=== PATIENT | male | born 1955 | race Caucasian/White ===

== ENCOUNTER 2016-11-21 07:59 | Inpatient (IN) | payer BC, OTHER ==
[~2016-11-21 07:59] MED LIST: Acetaminophen 500 MG Tab PO SCH; Famotidine 20 MG/2 ML SDV IVPUSH SCH; Ketorolac 30 MG/ML SDV IVPUSH SCH; Ropivacaine 49.25 ML, Ketorolac 30 MG, EPINEPHrine 0.5 MG, cloNIDine 80 MCG in Sodium C... INJECT ONE; Scopolamine 1.5 MG Transdermal Patch TRDERM SCH; ceFAZolin 2 GM in Premix Bag 1 BAG IV SCH; oxyCODONE ER 20 MG TAB.ER PO SCH
[2016-11-21] MEDS: Lactated Ringers 1,000 ML IV SCH ×3 (08:17→23:47)
[2016-11-21] MEDS ORDERED: Acetaminophen 500 MG Tab ONE (08:46)
[2016-11-21] MEDS ORDERED: Sodium Chloride 0.9% 20 ML ONE (08:58)
[2016-11-21] MEDS ORDERED: Lidocaine 2% 5 ML SDV ONE (08:58)
[2016-11-21] MEDS ORDERED: Propofol 200 MG/20 ML SDV ONE ×2 (08:58→10:42)
[2016-11-21] MEDS ORDERED: ceFAZolin 1 GM Vial ONE (08:58)
[2016-11-21] MEDS ORDERED: Midazolam 1 MG/ML 2 ML SDV ONE (08:59)
[2016-11-21] MEDS ORDERED: Ondansetron 4 MG/2 ML SDV ONE (08:59)
[2016-11-21] MEDS ORDERED: fentaNYL 100 MCG/2 ML SDV ONE (08:59)
[2016-11-21] MEDS ORDERED: ePHEDrine 50 MG/ML SDV ONE (08:59)
--- NOTE | 2016-11-21 09:10 | PCM.PREANE ---
Preanesthetic Assessment - Anesthesia/Transfusion/Family Hx Anesthesia History: Prior Anesthesia Without Reaction Family History of Anesthesia Reaction: No Transfusion History: No Prior Transfusion(s) - Review of Systems General: No Symptoms Pulmonary: No Symptoms Cardiovascular: No Symptoms Gastrointestinal: No Symptoms Neurological: No Symptoms Other: Reports: None - Physical Assessment NPO Status Date: 11/20/16 NPO Status Time: 23:00 O2 Sat by Pulse Oximetry: 95 Respiratory Rate: 16 Temperature: 36.6 C Vital Signs: Last Vital Signs Temp 36.6 C 11/21/16 08:45 Pulse 66 11/21/16 08:10 Resp 16 11/21/16 08:10 BP 127/75 11/21/16 08:10 Pulse Ox 95 11/21/16 08:10 Height: 1.85 m Weight: 115.666 kg ASA Class: 2 Mental Status: Alert & Oriented x3 Airway Class: Mallampati = 2 Dentition: Reports: Normal Dentition (devitalized central maxillary incisor) ROM/Head Extension: Full Lungs: Clear to Auscultation, Normal Respiratory Effort Cardiovascular: Regular Rate, Regular Rhythm - Allergies Allergies/Adverse Reactions: Allergies Allergy/AdvReac Type Severity Reaction Status Date / Time No Known Allergies Allergy Verified 03/06/14 14:10 - Acknowledgements Anesthesia Type Planned: Spinal Pt an Appropriate Candidate for the Planned Anesthesia: Yes Alternatives and Risks of Anesthesia Discussed w Pt/Guardian: Yes Pt/Guardian Understands and Agrees with Anesthesia Plan: Yes PreAnesthesia Questionnaire HEENT History: Reports: Other (See Below) Other HEENT History: wears glasses Respiratory History: Musculoskeletal History: Reports: Arthritis Psychiatric History: Reports: Anxiety, Depression Endocrine/Metabolic History: Reports: Obesity/BMI 30+ - Past Surgical History Head Surgeries/Procedures: Reports: None Musculoskeletal Surgical History: Reports: Arthroscopic Knee, Carpal Tunnel, Knee Replacement Other Musculoskeletal Surgeries/Procedures:: hx left TKA - SUBSTANCE USE Smoking Status *Q: Former Smoker Tobacco Use Within Last Twelve Months: No Recreational Drug Use History: No - HOME MEDS Home Medications: Home Meds Mometasone/Formoterol [Dulera 100-5 MCG] 1 - 2 puff INH BID PRN 02/24/16 [ History] buPROPion HCl [Wellbutrin Xl] 300 mg PO DAILY 02/24/16 [History] lamoTRIgine 200 mg PO BID 02/24/16 [History] Multivitamin with Minerals [Multiple Vitamin] 1 tab PO DAILY 11/16/16 [History] Temple-3/DHA/Epa/Fish Oil [Temple-3 Fish Oil 1,000 MG Sfgl] 1 tab PO DAILY [History] - CURRENT (IN HOUSE) MEDS Current Meds: Current Medications Acetaminophen (Tylenol Extra Strength) 1,000 mg PO ONARRIVE [facility] Last Admin: 11/21/16 08:45 Dose: 1,000 mg Famotidine (Pepcid) 40 mg IVPUSH ONARRIVE [place] Last Admin: 11/21/16 08:44 Dose: 40 mg Cefazolin Sodium/Dextrose 2 gm (/ Premix) 50 mls @ 100 mls/hr IV ONCALL [place] Lactated Ringer's (Ringers, Lactated) 1,000 mls @ 100 mls/hr IV ASDIRECTED [place] Last Admin: 11/21/16 08:17 Dose: 100 mls/hr Ketorolac Tromethamine (Toradol) 30 mg IVPUSH ONARRIVE [facility] Last Admin: 11/21/16 08:44 Dose: 30 mg Oxycodone HCl (Oxycontin) 20 mg PO ONARRIVE [place] Last Admin: 11/21/16 08:48 Dose: 20 mg Scopolamine (Transderm-Scop) 1.5 mg TRDERM ONARRIVE [place] Last Admin: 11/21/16 08:44 Dose: 1.5 mg Tranexamic Acid (Cyklokapron) 4,000 mg IV SEECOMMENT [place] Discontinued Medications Acetaminophen (Tylenol Extra Strength) Confirm Administered Dose 500 mg .ROUTE .STK-MED ONE Stop: 11/21/16 08:47 Cefazolin Sodium (Ancef) Confirm Administered Dose 2 gm .ROUTE .STK-MED ONE Stop: 11/21/16 08:59 Ephedrine Sulfate (Ephedrine Sulfate) Confirm Administered Dose 50 mg .ROUTE .STK-MED ONE Stop: 11/21/16 09:00 Fentanyl (Sublimaze) Confirm Administered Dose 100 mcg .ROUTE .STK-MED ONE Stop: 11/21/16 09:00 Ropivacaine 49.25 ml/Ketorolac Tromethamine 30 mg/Epinephrine HCl 0.5 mg/ Clonidine HCl 80 mcg/ Sodium Chloride 100 mls @ 50 mls/min INJECT ONETIME ONE Stop: 11/21/16 06:01 Sodium Chloride (Normal Saline) Confirm Administered Dose 20 mls @ as directed .ROUTE .STK-MED ONE Stop: 11/21/16 08:59 Lidocaine (Xylocaine-Mpf 2%) Confirm Administered Dose 10 ml .ROUTE .STK-MED ONE Stop: 11/21/16 08:59 Midazolam HCl (Versed 1 Mg/Ml) Confirm Administered Dose 2 mg .ROUTE .STK-MED ONE Stop: 11/21/16 09:00 Ondansetron HCl (Zofran) Confirm Administered Dose 4 mg .ROUTE .STK-MED ONE Stop: 11/21/16 09:00 Propofol (Diprivan 20 Ml) Confirm Administered Dose 400 mg .ROUTE .STK-MED ONE Stop: 11/21/16 08:59 Tranexamic Acid (Cyklokapron) Confirm Administered Dose 4,000 mg .ROUTE .STK- MED ONE Stop: 11/21/16 07:45
[2016-11-21] MEDS ORDERED: HYDROmorphone 2 MG/ML Syringe IVPUSH ONE (10:45)
[2016-11-21] MEDS ORDERED: fentaNYL 100 MCG/2 ML SDV IVPUSH PRN (10:45)
[2016-11-21] MEDS ORDERED: Phenylephrine/Normal Saline 100 MCG/ML 10 ML Syringe ONE (11:35)
--- NOTE | 2016-11-21 11:42 | PCM.OPNOTE ---
- General Post-Op/Procedure Note Date of Surgery/Procedure: 11/21/16 Operative Procedure(s): R TKa Post-Op Diagnosis: DJD R knee Anesthesia Technique: Moderate Sedation, Spinal Primary Surgeon: Arlet Holloway Fertilizer Processing Supervisor: Ajith Cardenas Fertilizer Processing Supervisor: Jeromy Chaney in mLs: 50 Condition: Good Free Text/Narrative:: #[id number] tt=52 min
[2016-11-21] MEDS ORDERED: diphenhydrAMINE 25 MG Cap PO PRN (11:57)
[2016-11-21] MEDS ORDERED: Bisacodyl 10 MG Supp RECTAL PRN (11:57)
[2016-11-21] MEDS ORDERED: Ondansetron 4 MG/2 ML SDV IV PRN (11:57)
[2016-11-21] MEDS ORDERED: Aluminum Hydroxide/Magnesium Hydroxide/Simethicone Susp 30 ML Cup PO PRN (11:57)
[2016-11-21] MEDS ORDERED: Ketorolac 30 MG/ML SDV IVPUSH SCH (12:00)
[2016-11-21] MEDS ORDERED: Acetaminophen 500 MG Tab PO SCH (12:00)
[2016-11-21] MEDS: oxyCODONE 5 MG Tab PO PRN ×2 (14:27→18:00)
--- NOTE | 2016-11-21 15:07 | OR ---
SURGEON: Arlet Holloway MD DATE OF PROCEDURE: 11/21/2016 PREOPERATIVE DIAGNOSIS: Degenerative joint disease, right knee, tricompartmental. POSTOPERATIVE DIAGNOSIS: Degenerative joint disease, right knee, tricompartmental. PROCEDURE: Right total knee arthroplasty using patient specific instrumentation. BAG WASHER: Ajith Cardenas PA-C and Jeromy Chaney, PGY-2. ANESTHESIA: Spinal with sedation. ESTIMATED BLOOD LOSS: 50 mL. TOURNIQUET TIME: 52 minutes. COMPLICATIONS: None. DVT PROPHYLAXIS: PAS boot and MIKE hose to the nonoperative leg. IMPLANTS USED: Stephanie Persona femoral component, size 12 (LPS); tibial component, size H; 10 mm all polyethylene articular surface; and 38 mm all-polyethylene patella. FINDINGS: Showed severe tricompartmental degenerative changes with grade 4 chondromalacia in all compartments. No excess synovitis was noted. BRIEF HISTORY: Reginald is a 61-year-old male, who has had complaint of progressive right knee pain. He has previously undergone a left total knee arthroplasty and has done well. Due to his lack of response to conservative treatment, I did recommend surgical intervention. The risks and goals of procedure were discussed with the patient and were documented preoperatively. He agreed to proceed. DESCRIPTION OF PROCEDURE: The patient was properly identified and brought to the operating room. The patient was then transferred from the operating room cart and placed on the operating table in a supine position. Anesthesia was administered by the anesthesia staff. After adequate anesthesia was obtained, a well-padded tourniquet was applied to the surgical lower extremity. Jose catheter was placed. The lower extremity was then prepped in standard fashion using ChloraPrep solution. It was then sterilely draped. A time-out was performed to ensure correct site and procedure. Preoperative antibiotics were given along with one gram tranexamic acid IV. The surgical site had been marked preoperatively. An Esmarch was used to exsanguinate the right lower extremity and the tourniquet was inflated. An incision was made over the anterior aspect of the knee. The subcutaneous tissues were dissected down to the level of the fascia. A medial parapatellar approach to the knee was made. A portion of the infrapatellar fat pad was then excised. The distal femur was then exposed. The step reamer was used to gain access to the intramedullary canal. This was placed in 6 degrees of valgus. Pins were placed. The distal femoral cutting block was placed and the distal femoral cut was made. Instrumentation was then removed. The femur was then sized. Both Whitesides' line and the epicondylar axis were then marked with electrocautery. The 4-in-1 cutting block was placed. This was placed in a slightly externally rotated position, which corresponded well with the previously drawn lines. The cutting guide was then pinned into position. An Olayinka wing guide was used to check the depth of resection of our anterior condylar cut and it was felt that no notching would occur. The anterior condylar cut was then made followed by the posterior condylar cut. Both the posterior chamfer and anterior chamfer cuts were then made. The cutting block was then removed along with the excess bony remnants. We then turned our attention to the tibia. The anterior cruciate ligament and posterior cruciate ligament were released and a posterior cruciate ligament retractor was placed to allow the tibia to be pulled anteriorly. The tibial extra-medullary guide was then positioned. We chose to take approximately 2 mm off the lowest side. The proximal tibia cutting guide was then placed and screwed into position. The proximal tibial resection was then made with care being taken to protect the patellar tendon. The bony resection was then removed. The remainder of the medial and lateral meniscus were then excised. Care was taken to protect the popliteus tendon. The tibia was then sized to the appropriate size. The distal femur was then elevated. The posterior capsule was stripped off the distal femur both medially and laterally. The posterior capsule along with the medial and lateral gutters were then injected with a standard mixture consisting of clonidine, epinephrine, Toradol, and ropivacaine, unless any allergies were found preoperatively. The femoral component was then placed onto the distal femur in a slightly lateral position. This fit the femur well. A box cut was then made without difficulty. This was then removed. The tibial trial along with the polyethylene liner was then placed. The knee came easily into full extension and was stable to varus and valgus stressing both in full extension and flexion. Any additional releases were performed at this time. We then returned our attention to the patella. The patella was everted and towel clamps were used to hold the patella in position. It was resected to a 15 millimeter thickness. It was then sized to the appropriate size. It was prepared in the usual fashion after placing the predetermined size clamps. This was placed in a slightly superior and medial position. The clamp was then removed. The patellar trial button was placed. The knee was taken through a range of motion using the no-touch technique. The patella tracked centrally. A drop kymberly was then placed to check alignment. All instruments were then removed from the knee. The tibial sizer was then placed on the tibia. The tibia was prepared in the usual fashion using the reamer and broach. This was then removed. All bony surfaces were copiously irrigated with Pulsavac solution. They were then suctioned dry. Cement was prepared on the back table in the usual manner. Antibiotic impregnated cement was used if the patient was diabetic. Once it was prepared, the bone ends were again suctioned dry. The tibia was cemented into place first. This was malleted into position. Excess cement was then cleared. The femur was then placed in a similar manner. We placed the polyethylene trial into place and the knee was brought into full extension. An axial load was placed while keeping the knee in full extension. The patella button was also cemented into position and the clamp was used to hold this in place as the cement was allowed to cure. The wound was copiously irrigated with saline using a Pulsavac gate keeper. Following this, 1 gram of tranexamic acid was applied topically to the wound during the curing process. After we had adequate curing of the cement, the knee was again taken through a range of motion. The size of the polyethylene was then determined. The polyethylene trial was then removed. The tibial tray was suctioned to make sure there was no remaining soft tissue or cement. Excess cement was cleared from around the edges of the prosthesis as well. The tourniquet was then deflated. We were able to observe for any excess bleeding and none was noted. Electrocautery was used to maintain hemostasis. An additional gram of tranexamic acid was given IV. The retractors were again placed and the predetermined polyethylene was then placed. This was locked into position without difficulty. The knee was again taken through a range of motion with no change from the prior exam. The fascial layer was closed with #1 Vicryl. The subcutaneous tissues were closed with 2-0 Vicryl. The skin was closed with tracy. Xeroform gauze was placed over the wound and a bulky dressing was applied. The patient was then awakened from anesthesia and transferred back to the operating room cart. They were brought to the recovery room in stable condition. All needle and sponge counts were correct. DIOMEDES / ANI /[id number]
[2016-11-21] MEDS: Ketorolac 30 MG/ML SDV IVPUSH SCH ×2 (15:12→21:04)
[2016-11-21] MEDS: Acetaminophen 500 MG Tab PO SCH ×2 (15:12→21:03)
--- NOTE | 2016-11-21 16:10 | CR ---
EXAMINATION: Right knee HISTORY: TKA COMPARISON: 10/04/2016 TECHNIQUE: 3 views FINDINGS/IMPRESSION: Right total knee hardware demonstrated in good position and alignment. Postopera tive soft tissue changes noted.
[2016-11-21] MEDS: ceFAZolin 2 GM in Premix Bag 1 BAG IV SCH (17:54)
[2016-11-21] MEDS ORDERED: ceFAZolin 2 GM in Premix Bag 1 BAG IV SCH (18:00)
[2016-11-21] MEDS: Docusate Sodium 100 MG Cap PO SCH (21:03)
[2016-11-21] MEDS: lamoTRIgine 100 MG Tab PO SCH (21:03)
[2016-11-21] MEDS: oxyCODONE ER 20 MG TAB.ER PO SCH (21:04)
[2016-11-22] MEDS: oxyCODONE 5 MG Tab PO PRN ×4 (00:12→19:06)
[2016-11-22] MEDS: ceFAZolin 2 GM in Premix Bag 1 BAG IV SCH (02:00)
[2016-11-22] MEDS: Acetaminophen 500 MG Tab PO SCH ×4 (02:31→21:30)
[2016-11-22] MEDS: Ketorolac 30 MG/ML SDV IVPUSH SCH (02:32)
[2016-11-22] MEDS: Morphine 10 MG/ML Syringe IVPUSH PRN ×4 (06:17→20:45)
--- NOTE | 2016-11-22 08:24 | PCM.SURGPN ---
<Ajith Cardenas - Last Filed: 11/22/16 08:44> - General Info Date of Service: 11/22/16 Date of Surgery/Procedure: 11/21/16 POD#: 1 Functional Status: Reports: Pain Controlled, Tolerating Diet, Ambulating, Urinating - Review of Systems General: Reports: No Symptoms Pulmonary: Reports: No Symptoms Cardiovascular: Reports: No Symptoms Gastrointestinal: Reports: No Symptoms Genitourinary: Reports: No Symptoms Musculoskeletal: Reports: Leg Pain, Joint Pain, Joint Swelling Neurological: Reports: No Symptoms Psychiatric: Reports: No Symptoms - Patient Data Vitals - Most Recent: Last Vital Signs Temp 37.0 C 11/22/16 04:00 Pulse 81 11/22/16 04:00 Resp 18 11/22/16 04:00 BP 112/58 L 11/22/16 04:00 Pulse Ox 90 L 11/22/16 04:00 Weight - Most Recent: 115.666 kg I&O - Last 24 Hours: Intake & Output 11/21/16 11/22/16 11/22/16 22:59 06:59 14:59 Intake Total 596 1456 Output Total 125 1800 Balance 471 -344 Lab Results Last 24 Hrs: Laboratory Results - last 24 hr 11/21/16 11/22/16 Range/Units 08:43 07:00 Hgb 14.8 (13.0-17.0) g/dL Hct 43.6 (38.0-50.0) % Blood Type O POSITIVE Antibody Screen NEGATIVE Med Orders - Current: Current Medications Acetaminophen (Tylenol Extra Strength) 1,000 mg PO Q6H [facility] Last Admin: 11/22/16 02:31 Dose: 1,000 mg Al Hydroxide/Mg Hydroxide (Mag-Al Plus) 30 ml PO Q4H PRN PRN Reason: indigestion Aspirin (Aspirin) 325 mg PO BID [facility] Bisacodyl (Dulcolax) 10 mg RECTAL DAILY PRN PRN Reason: Constipation Bupropion HCl (Wellbutrin Xl) 300 mg PO DAILY [facility] Celecoxib (Celebrex) 200 mg PO DAILY [facility] Diphenhydramine HCl (Benadryl) 25 - 50 mg PO Q6H PRN PRN Reason: Itching Docusate Sodium (Colace) 100 mg PO BID [facility] Last Admin: 11/21/16 21:03 Dose: 100 mg Fish Oil (Fish Oil) 1 gm PO DAILY [facility] Lactated Ringer's (Ringers, Lactated) 1,000 mls @ 100 mls/hr IV ASDIRECTED [facility] Last Admin: 11/21/16 23:47 Dose: 100 mls/hr Lamotrigine (Lamotrigine) 200 mg PO BID [facility] Last Admin: 11/21/16 21:03 Dose: 200 mg Magnesium Hydroxide (Milk Of Magnesia) 30 ml PO DAILY [facility] Morphine Sulfate (Morphine) 1 - 3 mg IVPUSH Q3H PRN PRN Reason: Pain Last Admin: 11/22/16 06:17 Dose: 2 mg Multivitamins/Minerals (Thera M Plus) 1 tab PO DAILY [facility] Ondansetron HCl (Zofran) 4 mg IV Q6HR PRN PRN Reason: NAUSEA/VOMITING Oxycodone HCl (Oxycodone) 5 - 10 mg PO Q4H PRN PRN Reason: Pain Last Admin: 11/22/16 00:12 Dose: 5 mg Oxycodone HCl (Oxycontin) 20 mg PO Q12HR [facility] Last Admin: 11/21/16 21:04 Dose: 20 mg (Mometasone/ (Formoterol 1 Puff)) 1 - 2 each INH BID PRN PRN Reason: throat mucous Scopolamine (Transderm-Scop) 1.5 mg TRDERM ONARRIVE [facility] Last Admin: 11/21/16 08:44 Dose: 1.5 mg Discontinued Medications Acetaminophen (Tylenol Extra Strength) 1,000 mg PO ONARRIVE [facility] Last Admin: 11/21/16 08:45 Dose: 1,000 mg Acetaminophen (Tylenol Extra Strength) Confirm Administered Dose 500 mg .ROUTE .STK-MED ONE Stop: 11/21/16 08:47 Acetaminophen (Tylenol Extra Strength) 1,000 mg PO Q6H [facility] Last Admin: 11/22/16 01:28 Dose: Not Given Cefazolin Sodium (Ancef) Confirm Administered Dose 2 gm .ROUTE .STK-MED ONE Stop: 11/21/16 08:59 Ephedrine Sulfate (Ephedrine Sulfate) Confirm Administered Dose 50 mg .ROUTE .STK-MED ONE Stop: 11/21/16 09:00 Famotidine (Pepcid) 40 mg IVPUSH ONARRIVE [facility] Last Admin: 11/21/16 08:44 Dose: 40 mg Fentanyl (Sublimaze) Confirm Administered Dose 100 mcg .ROUTE .STK-MED ONE Stop: 11/21/16 09:00 Fentanyl (Sublimaze) 50 mcg IVPUSH Q5M PRN PRN Reason: Pain (severe 7-10) Stop: 11/22/16 10:45 Hydromorphone HCl (Dilaudid) 0 mg IVPUSH ONETIME ONE Stop: 11/21/16 10:46 Last Admin: 11/21/16 21:06 Dose: Not Given Cefazolin Sodium/Dextrose 2 gm (/ Premix) 50 mls @ 100 mls/hr IV ONCALL [facility] Ropivacaine 49.25 ml/Ketorolac Tromethamine 30 mg/Epinephrine HCl 0.5 mg/ Clonidine HCl 80 mcg/ Sodium Chloride 100 mls @ 50 mls/min INJECT ONETIME ONE Stop: 11/21/16 06:01 Last Admin: 11/21/16 23:45 Dose: Not Given Sodium Chloride (Normal Saline) Confirm Administered Dose 20 mls @ as directed .ROUTE .STK-MED ONE Stop: 11/21/16 08:59 Cefazolin Sodium/Dextrose 2 gm (/ Premix) 50 mls @ 100 mls/hr IV Q8HR [facility] Stop: 11/21/16 22:29 Cefazolin Sodium/Dextrose 2 gm (/ Premix) 50 mls @ 100 mls/hr IV Q8H [facility] Stop: 11/22/16 02:29 Last Admin: 11/22/16 02:00 Dose: 100 mls/hr Ketorolac Tromethamine (Toradol) 30 mg IVPUSH ONARRIVE [facility] Last Admin: 11/21/16 08:44 Dose: 30 mg Ketorolac Tromethamine (Toradol) 30 mg IVPUSH Q6H [facility] Stop: 11/22/16 09:00 Last Admin: 11/22/16 01:28 Dose: Not Given Ketorolac Tromethamine (Toradol) 30 mg IVPUSH Q6H [facility] Stop: 11/22/16 03:01 Last Admin: 11/22/16 02:32 Dose: 30 mg Lidocaine (Xylocaine-Mpf 2%) Confirm Administered Dose 10 ml .ROUTE .STK-MED ONE Stop: 11/21/16 08:59 Midazolam HCl (Versed 1 Mg/Ml) Confirm Administered Dose 2 mg .ROUTE .STK-MED ONE Stop: 11/21/16 09:00 Ondansetron HCl (Zofran) Confirm Administered Dose 4 mg .ROUTE .STK-MED ONE Stop: 11/21/16 09:00 Oxycodone HCl (Oxycontin) 20 mg PO ONARRIVE [facility] Last Admin: 11/21/16 08:48 Dose: 20 mg Phenylephrine HCl (Phenylephrine In Ns 100 Mcg/Ml) Confirm Administered Dose 1 mg .ROUTE .STK-MED ONE Stop: 11/21/16 11:36 Propofol (Diprivan 20 Ml) Confirm Administered Dose 400 mg .ROUTE .STK-MED ONE Stop: 11/21/16 08:59 Propofol (Diprivan 20 Ml) Confirm Administered Dose 200 mg .ROUTE .STK-MED ONE Stop: 11/21/16 10:43 Tranexamic Acid (Cyklokapron) 4,000 mg IV SEECOMMENT [facility] Tranexamic Acid (Cyklokapron) Confirm Administered Dose 4,000 mg .ROUTE .STK- MED ONE Stop: 11/21/16 07:45 - Exam Wound/Incisions: Dressing Dry and Intact General: Alert, Oriented HEENT: Pupils Equal, Pupils Reactive Neck: Trachea Midline Lungs: Normal Respiratory Effort Cardiovascular: Regular Rate Extremities: Other (Right anterior tibialis, extensor hallucis longus and gastrocnemius strength +5/5 bilaterally. Sensation intact. Dorsalis pedis and posterior tibial pulses +2 bilaterally. ) Neurological: No New Focal Deficit Psy/Mental Status: Alert, Normal Affect, Normal Mood - Problem List Review Problem List Initiated/Reviewed/Updated: Yes - My Orders Last 24 Hours: Active Orders 24 hr Category Date Time Status Patient Status [ADT] Routine ADT 11/21/16 12:00 Active Activity as Tolerated [RC] .Routine Care 11/21/16 11:57 Active Intake and Output [RC] Q12H Care 11/21/16 11:57 Active Neurovascular Check [RC] Q2HR Care 11/21/16 11:57 Active Notify Provider Vital Signs [RC] ASDIRECTED Care 11/21/16 11:57 Active RT Incentive Spirometry [RC] ASDIRECTED Care 11/21/16 11:57 Active Vital Signs [RC] Q4H Care 11/21/16 11:57 Active PT Evaluation and Treatment [CONS] Routine Cons 11/21/16 11:56 Active HEMOGLOBIN/HEMATOCRIT,HH [HEME] DAILY Lab 11/23/16 07:00 Ordered HEMOGLOBIN/HEMATOCRIT,HH [HEME] DAILY Lab 11/24/16 07:00 Ordered Acetaminophen [Tylenol Extra Strength] Med 11/21/16 15:00 Active 1,000 mg PO Q6H [place] Hydrox/Mag Hydrox/Simeth [Mag-Al Plus] Med 11/21/16 11:57 Active 30 ml PO Q4H PRN Aspirin Med 11/22/16 09:00 Active 325 mg PO BID Bisacodyl [Dulcolax] Med 11/21/16 11:57 Active 10 mg RECTAL DAILY PRN Celecoxib [CeleBREX] Med 11/22/16 09:00 Active 200 mg PO DAILY Docusate Sodium [Colace] Med 11/21/16 21:00 Active 100 mg PO BID Fish Oil/Leland-3 Fatty Acids [Fish Oil] Med 11/22/16 09:00 Active 1 gm PO DAILY Magnesium Hydroxide [Milk of Magnesia] Med 11/22/16 09:00 Active 30 ml PO DAILY Morphine Med 11/21/16 11:58 Active 1 - 3 mg IVPUSH Q3H PRN Multivitamins w-Iron/Ca/FA/Min [Thera M Plus] Med 11/22/16 09:00 Active 1 tab PO DAILY Ondansetron [Zofran] Med 11/21/16 11:57 Active 4 mg IV Q6HR PRN Patient's Own Medication [Ptom] Med 11/21/16 12:00 Active 1 - 2 each INH BID PRN buPROPion [Wellbutrin XL] Med 11/22/16 09:00 Active 300 mg PO DAILY diphenhydrAMINE [Benadryl] Med 11/21/16 11:57 Active 25 - 50 mg PO Q6H PRN lamoTRIgine Med 11/21/16 21:00 Active 200 mg PO BID oxyCODONE Med 11/21/16 11:58 Active 5 - 10 mg PO Q4H PRN oxyCODONE ER [OxyCONTIN] Med 11/21/16 21:00 Active 20 mg PO Q12HR Ice Therapy [OM.PC] Routine Oth 11/21/16 11:57 Ordered Medication Orders Acetaminophen (Tylenol Extra Strength) 1,000 mg PO Q6H [facility] Last Admin: 11/22/16 02:31 Dose: 1,000 mg Admin: 11/21/16 21:03 Dose: 1,000 mg Admin: 11/21/16 15:12 Dose: 1,000 mg Al Hydroxide/Mg Hydroxide (Mag-Al Plus) 30 ml PO Q4H PRN PRN Reason: indigestion Aspirin (Aspirin) 325 mg PO BID [facility] Bisacodyl (Dulcolax) 10 mg RECTAL DAILY PRN PRN Reason: Constipation Bupropion HCl (Wellbutrin Xl) 300 mg PO DAILY [facility] Celecoxib (Celebrex) 200 mg PO DAILY [facility] Diphenhydramine HCl (Benadryl) 25 - 50 mg PO Q6H PRN PRN Reason: Itching Docusate Sodium (Colace) 100 mg PO BID [facility] Last Admin: 11/21/16 21:03 Dose: 100 mg Fish Oil (Fish Oil) 1 gm PO DAILY [facility] Lactated Ringer's (Ringers, Lactated) 1,000 mls @ 100 mls/hr IV ASDIRECTED [facility] Last Admin: 11/21/16 23:47 Dose: 100 mls/hr Infusion: 11/21/16 23:46 Dose: 100 mls/hr Admin: 11/21/16 14:54 Dose: 100 mls/hr Infusion: 11/21/16 14:54 Dose: 100 mls/hr Admin: 11/21/16 08:17 Dose: 100 mls/hr Lamotrigine (Lamotrigine) 200 mg PO BID [facility] Last Admin: 11/21/16 21:03 Dose: 200 mg Magnesium Hydroxide (Milk Of Magnesia) 30 ml PO DAILY [facility] Morphine Sulfate (Morphine) 1 - 3 mg IVPUSH Q3H PRN PRN Reason: Pain Last Admin: 11/22/16 06:17 Dose: 2 mg Multivitamins/Minerals (Thera M Plus) 1 tab PO DAILY [facility] Ondansetron HCl (Zofran) 4 mg IV Q6HR PRN PRN Reason: NAUSEA/VOMITING Oxycodone HCl (Oxycodone) 5 - 10 mg PO Q4H PRN PRN Reason: Pain Last Admin: 11/22/16 00:12 Dose: 5 mg Admin: 11/21/16 18:00 Dose: 10 mg Admin: 11/21/16 14:27 Dose: 5 mg Oxycodone HCl (Oxycontin) 20 mg PO Q12HR [facility] Last Admin: 11/21/16 21:04 Dose: 20 mg (Mometasone/ (Formoterol 1 Puff)) 1 - 2 each INH BID PRN PRN Reason: throat mucous Scopolamine (Transderm-Scop) 1.5 mg TRDERM ONARRIVE [facility] Last Admin: 11/21/16 08:44 Dose: 1.5 mg - Assessment Assessment (Free Text/Narrative):: Patient awake in bed this AM. Pain well controlled. Tolerating diet. No complaints today. VSS. Hgb 14.8. UO 2100 mL. - Plan Plan (Free Text/Narrative):: Continue pain management. Continue PT. Encourage PO fluid intake. D/C LRs and everett. Start Aspirin 325 mg PO BID for DVT prophylaxis. Probable discharge home tomorrow. <Arlet Holloway - Last Filed: 11/22/16 17:52> - Patient Data Vitals - Most Recent: Last Vital Signs Temp 98.7 F 11/22/16 16:00 Pulse 78 11/22/16 16:00 Resp 22 H 11/22/16 16:00 BP 150/77 H 11/22/16 16:00 Pulse Ox 90 L 11/22/16 16:00 I&O - Last 24 Hours: Intake & Output 11/22/16 11/22/16 11/22/16 06:59 14:59 22:59 Intake Total 1456 518 Output Total 1800 400 Balance -344 118 Lab Results Last 24 Hrs: Laboratory Results - last 24 hr 11/22/16 Range/Units 07:00 Hgb 14.8 (13.0-17.0) g/dL Hct 43.6 (38.0-50.0) % Med Orders - Current: Current Medications Acetaminophen (Tylenol Extra Strength) 1,000 mg PO Q6H [facility] Last Admin: 11/22/16 14:55 Dose: 1,000 mg Al Hydroxide/Mg Hydroxide (Mag-Al Plus) 30 ml PO Q4H PRN PRN Reason: indigestion Aspirin (Aspirin) 325 mg PO BID [facility] Last Admin: 11/22/16 08:55 Dose: 325 mg Bisacodyl (Dulcolax) 10 mg RECTAL DAILY PRN PRN Reason: Constipation Bupropion HCl (Wellbutrin Xl) 300 mg PO DAILY [facility] Last Admin: 11/22/16 08:56 Dose: 300 mg Celecoxib (Celebrex) 200 mg PO DAILY [facility] Last Admin: 11/22/16 08:56 Dose: 200 mg Diphenhydramine HCl (Benadryl) 25 - 50 mg PO Q6H PRN PRN Reason: Itching Docusate Sodium (Colace) 100 mg PO BID [facility] Last Admin: 11/22/16 08:56 Dose: 100 mg Fish Oil (Fish Oil) 1 gm PO DAILY [facility] Last Admin: 11/22/16 08:56 Dose: 1 gm Lamotrigine (Lamotrigine) 200 mg PO BID [facility] Last Admin: 11/22/16 08:56 Dose: 200 mg Magnesium Hydroxide (Milk Of Magnesia) 30 ml PO DAILY [facility] Last Admin: 11/22/16 08:56 Dose: 30 ml Morphine Sulfate (Morphine) 1 - 3 mg IVPUSH Q3H PRN PRN Reason: Pain Last Admin: 11/22/16 12:16 Dose: 2 mg Multivitamins/Minerals (Thera M Plus) 1 tab PO DAILY [facility] Last Admin: 11/22/16 08:55 Dose: 1 tab Ondansetron HCl (Zofran) 4 mg IV Q6HR PRN PRN Reason: NAUSEA/VOMITING Oxycodone HCl (Oxycodone) 5 - 10 mg PO Q4H PRN PRN Reason: Pain Last Admin: 11/22/16 14:54 Dose: 10 mg Oxycodone HCl (Oxycontin) 20 mg PO Q12HR [facility] Last Admin: 11/22/16 08:56 Dose: 20 mg (Mometasone/ (Formoterol 1 Puff)) 1 - 2 each INH BID PRN PRN Reason: throat mucous Scopolamine (Transderm-Scop) 1.5 mg TRDERM ONARRIVE [facility] Last Admin: 11/21/16 08:44 Dose: 1.5 mg Sodium Chloride (Saline Flush) 10 ml FLUSH ASDIRECTED PRN PRN Reason: Keep Vein Open Sodium Chloride (Saline Flush) 2.5 ml FLUSH ASDIRECTED PRN PRN Reason: Keep Vein Open Discontinued Medications Acetaminophen (Tylenol Extra Strength) 1,000 mg PO ONARRIVE [facility] Last Admin: 11/21/16 08:45 Dose: 1,000 mg Acetaminophen (Tylenol Extra Strength) Confirm Administered Dose 500 mg .ROUTE .STK-MED ONE Stop: 11/21/16 08:47 Acetaminophen (Tylenol Extra Strength) 1,000 mg PO Q6H [facility] Last Admin: 11/22/16 01:28 Dose: Not Given Cefazolin Sodium (Ancef) Confirm Administered Dose 2 gm .ROUTE .STK-MED ONE Stop: 11/21/16 08:59 Ephedrine Sulfate (Ephedrine Sulfate) Confirm Administered Dose 50 mg .ROUTE .STK-MED ONE Stop: 11/21/16 09:00 Famotidine (Pepcid) 40 mg IVPUSH ONARRIVE [facility] Last Admin: 11/21/16 08:44 Dose: 40 mg Fentanyl (Sublimaze) Confirm Administered Dose 100 mcg .ROUTE .STK-MED ONE Stop: 11/21/16 09:00 Fentanyl (Sublimaze) 50 mcg IVPUSH Q5M PRN PRN Reason: Pain (severe 7-10) Stop: 11/22/16 10:45 Hydromorphone HCl (Dilaudid) 0 mg IVPUSH ONETIME ONE Stop: 11/21/16 10:46 Last Admin: 11/21/16 21:06 Dose: Not Given Cefazolin Sodium/Dextrose 2 gm (/ Premix) 50 mls @ 100 mls/hr IV ONCALL [facility] Ropivacaine 49.25 ml/Ketorolac Tromethamine 30 mg/Epinephrine HCl 0.5 mg/ Clonidine HCl 80 mcg/ Sodium Chloride 100 mls @ 50 mls/min INJECT ONETIME ONE Stop: 11/21/16 06:01 Last Admin: 11/21/16 23:45 Dose: Not Given Lactated Ringer's (Ringers, Lactated) 1,000 mls @ 100 mls/hr IV ASDIRECTED [facility] Last Admin: 11/21/16 23:47 Dose: 100 mls/hr Sodium Chloride (Normal Saline) Confirm Administered Dose 20 mls @ as directed .ROUTE .STK-MED ONE Stop: 11/21/16 08:59 Cefazolin Sodium/Dextrose 2 gm (/ Premix) 50 mls @ 100 mls/hr IV Q8HR [facility] Stop: 11/21/16 22:29 Cefazolin Sodium/Dextrose 2 gm (/ Premix) 50 mls @ 100 mls/hr IV Q8H [facility] Stop: 11/22/16 02:29 Last Admin: 11/22/16 02:00 Dose: 100 mls/hr Ketorolac Tromethamine (Toradol) 30 mg IVPUSH ONARRIVE [facility] Last Admin: 11/21/16 08:44 Dose: 30 mg Ketorolac Tromethamine (Toradol) 30 mg IVPUSH Q6H [facility] Stop: 11/22/16 09:00 Last Admin: 11/22/16 01:28 Dose: Not Given Ketorolac Tromethamine (Toradol) 30 mg IVPUSH Q6H [facility] Stop: 11/22/16 03:01 Last Admin: 11/22/16 02:32 Dose: 30 mg Lidocaine (Xylocaine-Mpf 2%) Confirm Administered Dose 10 ml .ROUTE .STK-MED ONE Stop: 11/21/16 08:59 Midazolam HCl (Versed 1 Mg/Ml) Confirm Administered Dose 2 mg .ROUTE .STK-MED ONE Stop: 11/21/16 09:00 Ondansetron HCl (Zofran) Confirm Administered Dose 4 mg .ROUTE .STK-MED ONE Stop: 11/21/16 09:00 Oxycodone HCl (Oxycontin) 20 mg PO ONARRIVE [facility] Last Admin: 11/21/16 08:48 Dose: 20 mg Phenylephrine HCl (Phenylephrine In Ns 100 Mcg/Ml) Confirm Administered Dose 1 mg .ROUTE .STK-MED ONE Stop: 11/21/16 11:36 Propofol (Diprivan 20 Ml) Confirm Administered Dose 400 mg .ROUTE .STK-MED ONE Stop: 11/21/16 08:59 Propofol (Diprivan 20 Ml) Confirm Administered Dose 200 mg .ROUTE .STK-MED ONE Stop: 11/21/16 10:43 Tranexamic Acid (Cyklokapron) 4,000 mg IV SEECOMMENT [facility] Tranexamic Acid (Cyklokapron) Confirm Administered Dose 4,000 mg .ROUTE .STK- MED ONE Stop: 11/21/16 07:45 - My Orders Last 24 Hours: Active Orders 24 hr Category Date Time Status Urinary Catheter Removal [RC] Per Unit Routine Care 11/22/16 08:46 Active HEMOGLOBIN/HEMATOCRIT,HH [HEME] DAILY Lab 11/23/16 07:00 Ordered HEMOGLOBIN/HEMATOCRIT,HH [HEME] DAILY Lab 11/24/16 07:00 Ordered Aspirin Med 11/22/16 09:00 Active 325 mg PO BID Celecoxib [CeleBREX] Med 11/22/16 09:00 Active 200 mg PO DAILY Docusate Sodium [Colace] Med 11/21/16 21:00 Active 100 mg PO BID Fish Oil/Leland-3 Fatty Acids [Fish Oil] Med 11/22/16 09:00 Active 1 gm PO DAILY Magnesium Hydroxide [Milk of Magnesia] Med 11/22/16 09:00 Active 30 ml PO DAILY Multivitamins w-Iron/Ca/FA/Min [Thera M Plus] Med 11/22/16 09:00 Active 1 tab PO DAILY Sodium Chloride 0.9% [Saline Flush] Med 11/22/16 08:46 Active 10 ml FLUSH ASDIRECTED PRN Sodium Chloride 0.9% [Saline Flush] Med 11/22/16 08:46 Active 2.5 ml FLUSH ASDIRECTED PRN buPROPion [Wellbutrin XL] Med 11/22/16 09:00 Active 300 mg PO DAILY lamoTRIgine Med 11/21/16 21:00 Active 200 mg PO BID oxyCODONE ER [OxyCONTIN] Med 11/21/16 21:00 Active 20 mg PO Q12HR Convert IV to Saline Lock [OM.PC] Routine Oth 11/22/16 08:46 Ordered Medication Orders Acetaminophen (Tylenol Extra Strength) 1,000 mg PO Q6H [facility] Last Admin: 11/22/16 14:55 Dose: 1,000 mg Admin: 11/22/16 08:57 Dose: 1,000 mg Admin: 11/22/16 02:31 Dose: 1,000 mg Admin: 11/21/16 21:03 Dose: 1,000 mg Admin: 11/21/16 15:12 Dose: 1,000 mg Al Hydroxide/Mg Hydroxide (Mag-Al Plus) 30 ml PO Q4H PRN PRN Reason: indigestion Aspirin (Aspirin) 325 mg PO BID [facility] Last Admin: 11/22/16 08:55 Dose: 325 mg Bisacodyl (Dulcolax) 10 mg RECTAL DAILY PRN PRN Reason: Constipation Bupropion HCl (Wellbutrin Xl) 300 mg PO DAILY [facility] Last Admin: 11/22/16 08:56 Dose: 300 mg Celecoxib (Celebrex) 200 mg PO DAILY [facility] Last Admin: 11/22/16 08:56 Dose: 200 mg Diphenhydramine HCl (Benadryl) 25 - 50 mg PO Q6H PRN PRN Reason: Itching Docusate Sodium (Colace) 100 mg PO BID [facility] Last Admin: 11/22/16 08:56 Dose: 100 mg Admin: 11/21/16 21:03 Dose: 100 mg Fish Oil (Fish Oil) 1 gm PO DAILY [facility] Last Admin: 11/22/16 08:56 Dose: 1 gm Lamotrigine (Lamotrigine) 200 mg PO BID [facility] Last Admin: 11/22/16 08:56 Dose: 200 mg Admin: 11/21/16 21:03 Dose: 200 mg Magnesium Hydroxide (Milk Of Magnesia) 30 ml PO DAILY [facility] Last Admin: 11/22/16 08:56 Dose: 30 ml Morphine Sulfate (Morphine) 1 - 3 mg IVPUSH Q3H PRN PRN Reason: Pain Last Admin: 11/22/16 12:16 Dose: 2 mg Admin: 11/22/16 06:17 Dose: 2 mg Multivitamins/Minerals (Thera M Plus) 1 tab PO DAILY [facility] Last Admin: 11/22/16 08:55 Dose: 1 tab Ondansetron HCl (Zofran) 4 mg IV Q6HR PRN PRN Reason: NAUSEA/VOMITING Oxycodone HCl (Oxycodone) 5 - 10 mg PO Q4H PRN PRN Reason: Pain Last Admin: 11/22/16 14:54 Dose: 10 mg Admin: 11/22/16 10:50 Dose: 10 mg Admin: 11/22/16 00:12 Dose: 5 mg Admin: 11/21/16 18:00 Dose: 10 mg Admin: 11/21/16 14:27 Dose: 5 mg Oxycodone HCl (Oxycontin) 20 mg PO Q12HR [facility] Last Admin: 11/22/16 08:56 Dose: 20 mg Admin: 11/21/16 21:04 Dose: 20 mg (Mometasone/ (Formoterol 1 Puff)) 1 - 2 each INH BID PRN PRN Reason: throat mucous Scopolamine (Transderm-Scop) 1.5 mg TRDERM ONARRIVE [facility] Last Admin: 11/21/16 08:44 Dose: 1.5 mg Sodium Chloride (Saline Flush) 10 ml FLUSH ASDIRECTED PRN PRN Reason: Keep Vein Open Sodium Chloride (Saline Flush) 2.5 ml FLUSH ASDIRECTED PRN PRN Reason: Keep Vein Open - Plan Plan (Free Text/Narrative):: 1800 Patient seen and examined. Agree with above note. Patient sitting up in chair. States pain isn't controlled. Recently received Morphine, waiting for that to work. Dressing dry/intact. NVI. 1. continue PT and mobilization 2. continue current pain management--Fentanyl patch placed, oxycontin discontinued 3. probably discharge home tomorrow
[2016-11-22] MEDS ORDERED: Sodium Chloride 0.9% 2.5 ML Syringe FLUSH PRN (08:46)
[2016-11-22] MEDS ORDERED: Sodium Chloride 0.9% 10 ML Syringe FLUSH PRN (08:46)
[2016-11-22] MEDS: Aspirin 325 MG Tab PO SCH ×2 (08:55→21:32)
[2016-11-22] MEDS: Multivitamins with Iron/Calcium/Folic Acid/Minerals Tab PO SCH (08:55)
[2016-11-22] MEDS: buPROPion 150 MG Tab.ER PO SCH (08:56)
[2016-11-22] MEDS: Fish Oil/Omega-3 Fatty Acids 1 Gm Cap PO SCH (08:56)
[2016-11-22] MEDS: oxyCODONE ER 20 MG TAB.ER PO SCH ×2 (08:56→21:32)
[2016-11-22] MEDS: Docusate Sodium 100 MG Cap PO SCH ×2 (08:56→21:31)
[2016-11-22] MEDS: lamoTRIgine 100 MG Tab PO SCH ×2 (08:56→21:31)
[2016-11-22] MEDS: Magnesium Hydroxide 400 MG/5 ML Susp 30 ML Cup PO SCH (08:56)
[2016-11-22] MEDS: Celecoxib 100 MG Cap PO SCH (08:56)
[2016-11-23] MEDS: Acetaminophen 500 MG Tab PO SCH ×3 (02:08→14:36)
[2016-11-23] MEDS: oxyCODONE 5 MG Tab PO PRN (02:09)
--- NOTE | 2016-11-23 08:17 | PCM.SURGPN ---
- General Info Date of Service: 11/23/16 Date of Surgery/Procedure: 11/21/16 POD#: 2 Functional Status: Reports: Pain Controlled, Tolerating Diet, Ambulating, Urinating - Review of Systems General: Reports: No Symptoms Pulmonary: Reports: No Symptoms Cardiovascular: Reports: No Symptoms Gastrointestinal: Reports: No Symptoms Genitourinary: Reports: No Symptoms Musculoskeletal: Reports: Leg Pain, Joint Pain, Joint Swelling Neurological: Reports: No Symptoms Psychiatric: Reports: No Symptoms - Patient Data Vitals - Most Recent: Last Vital Signs Temp 37.2 C 11/23/16 04:00 Pulse 87 11/23/16 04:00 Resp 18 11/23/16 04:00 BP 120/78 11/23/16 04:00 Pulse Ox 97 11/23/16 04:00 Weight - Most Recent: 115.666 kg I&O - Last 24 Hours: Intake & Output 11/22/16 11/23/16 11/23/16 22:59 06:59 14:59 Intake Total 518 500 Output Total 400 Balance 118 500 Lab Results Last 24 Hrs: Laboratory Results - last 24 hr 11/23/16 Range/Units 07:14 Hgb 14.6 (13.0-17.0) g/dL Hct 42.6 (38.0-50.0) % Med Orders - Current: Current Medications Acetaminophen (Tylenol Extra Strength) 1,000 mg PO Q6H [facility] Last Admin: 11/23/16 02:08 Dose: 1,000 mg Al Hydroxide/Mg Hydroxide (Mag-Al Plus) 30 ml PO Q4H PRN PRN Reason: indigestion Aspirin (Aspirin) 325 mg PO BID [facility] Last Admin: 11/22/16 21:32 Dose: 325 mg Bisacodyl (Dulcolax) 10 mg RECTAL DAILY PRN PRN Reason: Constipation Bupropion HCl (Wellbutrin Xl) 300 mg PO DAILY [facility] Last Admin: 11/22/16 08:56 Dose: 300 mg Celecoxib (Celebrex) 200 mg PO DAILY [facility] Last Admin: 11/22/16 08:56 Dose: 200 mg Diphenhydramine HCl (Benadryl) 25 - 50 mg PO Q6H PRN PRN Reason: Itching Docusate Sodium (Colace) 100 mg PO BID [facility] Last Admin: 11/22/16 21:31 Dose: 100 mg Fish Oil (Fish Oil) 1 gm PO DAILY [facility] Last Admin: 11/22/16 08:56 Dose: 1 gm Lamotrigine (Lamotrigine) 200 mg PO BID [facility] Last Admin: 11/22/16 21:31 Dose: 200 mg Magnesium Hydroxide (Milk Of Magnesia) 30 ml PO DAILY [facility] Last Admin: 11/22/16 08:56 Dose: 30 ml Morphine Sulfate (Morphine) 1 - 3 mg IVPUSH Q3H PRN PRN Reason: Pain Last Admin: 11/22/16 20:45 Dose: 2 mg Multivitamins/Minerals (Thera M Plus) 1 tab PO DAILY [facility] Last Admin: 11/22/16 08:55 Dose: 1 tab Ondansetron HCl (Zofran) 4 mg IV Q6HR PRN PRN Reason: NAUSEA/VOMITING Oxycodone HCl (Oxycodone) 5 - 10 mg PO Q4H PRN PRN Reason: Pain Last Admin: 11/23/16 02:09 Dose: 10 mg Oxycodone HCl (Oxycontin) 20 mg PO Q12HR [facility] Last Admin: 11/22/16 21:32 Dose: 20 mg (Mometasone/ (Formoterol 1 Puff)) 1 - 2 each INH BID PRN PRN Reason: throat mucous Scopolamine (Transderm-Scop) 1.5 mg TRDERM ONARRIVE [facility] Last Admin: 11/21/16 08:44 Dose: 1.5 mg Sodium Chloride (Saline Flush) 10 ml FLUSH ASDIRECTED PRN PRN Reason: Keep Vein Open Sodium Chloride (Saline Flush) 2.5 ml FLUSH ASDIRECTED PRN PRN Reason: Keep Vein Open Discontinued Medications Acetaminophen (Tylenol Extra Strength) 1,000 mg PO ONARRIVE [facility] Last Admin: 11/21/16 08:45 Dose: 1,000 mg Acetaminophen (Tylenol Extra Strength) Confirm Administered Dose 500 mg .ROUTE .STK-MED ONE Stop: 11/21/16 08:47 Acetaminophen (Tylenol Extra Strength) 1,000 mg PO Q6H [facility] Last Admin: 11/22/16 01:28 Dose: Not Given Cefazolin Sodium (Ancef) Confirm Administered Dose 2 gm .ROUTE .STK-MED ONE Stop: 11/21/16 08:59 Ephedrine Sulfate (Ephedrine Sulfate) Confirm Administered Dose 50 mg .ROUTE .STK-MED ONE Stop: 11/21/16 09:00 Famotidine (Pepcid) 40 mg IVPUSH ONARRIVE [facility] Last Admin: 11/21/16 08:44 Dose: 40 mg Fentanyl (Sublimaze) Confirm Administered Dose 100 mcg .ROUTE .STK-MED ONE Stop: 11/21/16 09:00 Fentanyl (Sublimaze) 50 mcg IVPUSH Q5M PRN PRN Reason: Pain (severe 7-10) Stop: 11/22/16 10:45 Hydromorphone HCl (Dilaudid) 0 mg IVPUSH ONETIME ONE Stop: 11/21/16 10:46 Last Admin: 11/21/16 21:06 Dose: Not Given Cefazolin Sodium/Dextrose 2 gm (/ Premix) 50 mls @ 100 mls/hr IV ONCALL [facility] Ropivacaine 49.25 ml/Ketorolac Tromethamine 30 mg/Epinephrine HCl 0.5 mg/ Clonidine HCl 80 mcg/ Sodium Chloride 100 mls @ 50 mls/min INJECT ONETIME ONE Stop: 11/21/16 06:01 Last Admin: 11/21/16 23:45 Dose: Not Given Lactated Ringer's (Ringers, Lactated) 1,000 mls @ 100 mls/hr IV ASDIRECTED [facility] Last Admin: 11/21/16 23:47 Dose: 100 mls/hr Sodium Chloride (Normal Saline) Confirm Administered Dose 20 mls @ as directed .ROUTE .STK-MED ONE Stop: 11/21/16 08:59 Cefazolin Sodium/Dextrose 2 gm (/ Premix) 50 mls @ 100 mls/hr IV Q8HR [facility] Stop: 11/21/16 22:29 Cefazolin Sodium/Dextrose 2 gm (/ Premix) 50 mls @ 100 mls/hr IV Q8H [facility] Stop: 11/22/16 02:29 Last Admin: 11/22/16 02:00 Dose: 100 mls/hr Ketorolac Tromethamine (Toradol) 30 mg IVPUSH ONARRIVE [facility] Last Admin: 11/21/16 08:44 Dose: 30 mg Ketorolac Tromethamine (Toradol) 30 mg IVPUSH Q6H [facility] Stop: 11/22/16 09:00 Last Admin: 11/22/16 01:28 Dose: Not Given Ketorolac Tromethamine (Toradol) 30 mg IVPUSH Q6H [facility] Stop: 11/22/16 03:01 Last Admin: 11/22/16 02:32 Dose: 30 mg Lidocaine (Xylocaine-Mpf 2%) Confirm Administered Dose 10 ml .ROUTE .STK-MED ONE Stop: 11/21/16 08:59 Midazolam HCl (Versed 1 Mg/Ml) Confirm Administered Dose 2 mg .ROUTE .STK-MED ONE Stop: 11/21/16 09:00 Ondansetron HCl (Zofran) Confirm Administered Dose 4 mg .ROUTE .STK-MED ONE Stop: 11/21/16 09:00 Oxycodone HCl (Oxycontin) 20 mg PO ONARRIVE [facility] Last Admin: 11/21/16 08:48 Dose: 20 mg Phenylephrine HCl (Phenylephrine In Ns 100 Mcg/Ml) Confirm Administered Dose 1 mg .ROUTE .STK-MED ONE Stop: 11/21/16 11:36 Propofol (Diprivan 20 Ml) Confirm Administered Dose 400 mg .ROUTE .STK-MED ONE Stop: 11/21/16 08:59 Propofol (Diprivan 20 Ml) Confirm Administered Dose 200 mg .ROUTE .STK-MED ONE Stop: 11/21/16 10:43 Tranexamic Acid (Cyklokapron) 4,000 mg IV SEECOMMENT [facility] Tranexamic Acid (Cyklokapron) Confirm Administered Dose 4,000 mg .ROUTE .STK- MED ONE Stop: 11/21/16 07:45 - Exam Wound/Incisions: Dressing Dry and Intact (Dressing changed this AM.) General: Alert, Oriented HEENT: Pupils Equal, Pupils Reactive Neck: Trachea Midline Lungs: Normal Respiratory Effort Cardiovascular: Regular Rate Extremities: Other (Right anterior tibialis, extensor hallucis longus and gastrocnemius strength +5/5 bilaterally. Sensation intact. Dorsalis pedis and posterior tibial pulses +2 bilaterally. ) Neurological: No New Focal Deficit Psy/Mental Status: Alert, Normal Affect, Normal Mood - Problem List Review Problem List Initiated/Reviewed/Updated: Yes - My Orders Last 24 Hours: Active Orders 24 hr Category Date Time Status Urinary Catheter Removal [RC] Per Unit Routine Care 11/22/16 08:46 Active HEMOGLOBIN/HEMATOCRIT,HH [HEME] DAILY Lab 11/24/16 07:00 Ordered Aspirin Med 11/22/16 09:00 Active 325 mg PO BID Celecoxib [CeleBREX] Med 11/22/16 09:00 Active 200 mg PO DAILY Fish Oil/[place]-3 Fatty Acids [Fish Oil] Med 11/22/16 09:00 Active 1 gm PO DAILY Magnesium Hydroxide [Milk of Magnesia] Med 11/22/16 09:00 Active 30 ml PO DAILY Multivitamins w-Iron/Ca/FA/Min [Thera M Plus] Med 11/22/16 09:00 Active 1 tab PO DAILY Sodium Chloride 0.9% [Saline Flush] Med 11/22/16 08:46 Active 10 ml FLUSH ASDIRECTED PRN Sodium Chloride 0.9% [Saline Flush] Med 11/22/16 08:46 Active 2.5 ml FLUSH ASDIRECTED PRN buPROPion [Wellbutrin XL] Med 11/22/16 09:00 Active 300 mg PO DAILY Convert IV to Saline Lock [OM.PC] Routine Oth 11/22/16 08:46 Ordered Medication Orders Acetaminophen (Tylenol Extra Strength) 1,000 mg PO Q6H [facility] Last Admin: 11/23/16 02:08 Dose: 1,000 mg Admin: 11/22/16 21:30 Dose: 1,000 mg Admin: 11/22/16 14:55 Dose: 1,000 mg Admin: 11/22/16 08:57 Dose: 1,000 mg Admin: 11/22/16 02:31 Dose: 1,000 mg Admin: 11/21/16 21:03 Dose: 1,000 mg Admin: 11/21/16 15:12 Dose: 1,000 mg Al Hydroxide/Mg Hydroxide (Mag-Al Plus) 30 ml PO Q4H PRN PRN Reason: indigestion Aspirin (Aspirin) 325 mg PO BID [facility] Last Admin: 11/22/16 21:32 Dose: 325 mg Admin: 11/22/16 08:55 Dose: 325 mg Bisacodyl (Dulcolax) 10 mg RECTAL DAILY PRN PRN Reason: Constipation Bupropion HCl (Wellbutrin Xl) 300 mg PO DAILY [facility] Last Admin: 11/22/16 08:56 Dose: 300 mg Celecoxib (Celebrex) 200 mg PO DAILY [facility] Last Admin: 11/22/16 08:56 Dose: 200 mg Diphenhydramine HCl (Benadryl) 25 - 50 mg PO Q6H PRN PRN Reason: Itching Docusate Sodium (Colace) 100 mg PO BID [facility] Last Admin: 11/22/16 21:31 Dose: 100 mg Admin: 11/22/16 08:56 Dose: 100 mg Admin: 11/21/16 21:03 Dose: 100 mg Fish Oil (Fish Oil) 1 gm PO DAILY [facility] Last Admin: 11/22/16 08:56 Dose: 1 gm Lamotrigine (Lamotrigine) 200 mg PO BID [facility] Last Admin: 11/22/16 21:31 Dose: 200 mg Admin: 11/22/16 08:56 Dose: 200 mg Admin: 11/21/16 21:03 Dose: 200 mg Magnesium Hydroxide (Milk Of Magnesia) 30 ml PO DAILY [facility] Last Admin: 11/22/16 08:56 Dose: 30 ml Morphine Sulfate (Morphine) 1 - 3 mg IVPUSH Q3H PRN PRN Reason: Pain Last Admin: 11/22/16 20:45 Dose: 2 mg Admin: 11/22/16 12:16 Dose: 2 mg Admin: 11/22/16 06:17 Dose: 2 mg Multivitamins/Minerals (Thera M Plus) 1 tab PO DAILY [facility] Last Admin: 11/22/16 08:55 Dose: 1 tab Ondansetron HCl (Zofran) 4 mg IV Q6HR PRN PRN Reason: NAUSEA/VOMITING Oxycodone HCl (Oxycodone) 5 - 10 mg PO Q4H PRN PRN Reason: Pain Last Admin: 11/23/16 02:09 Dose: 10 mg Admin: 11/22/16 19:06 Dose: 10 mg Admin: 11/22/16 14:54 Dose: 10 mg Admin: 11/22/16 10:50 Dose: 10 mg Admin: 11/22/16 00:12 Dose: 5 mg Admin: 11/21/16 18:00 Dose: 10 mg Admin: 11/21/16 14:27 Dose: 5 mg Oxycodone HCl (Oxycontin) 20 mg PO Q12HR [facility] Last Admin: 11/22/16 21:32 Dose: 20 mg Admin: 11/22/16 08:56 Dose: 20 mg Admin: 11/21/16 21:04 Dose: 20 mg (Mometasone/ (Formoterol 1 Puff)) 1 - 2 each INH BID PRN PRN Reason: throat mucous Scopolamine (Transderm-Scop) 1.5 mg TRDERM ONARRIVE [place] Last Admin: 11/21/16 08:44 Dose: 1.5 mg Sodium Chloride (Saline Flush) 10 ml FLUSH ASDIRECTED PRN PRN Reason: Keep Vein Open Sodium Chloride (Saline Flush) 2.5 ml FLUSH ASDIRECTED PRN PRN Reason: Keep Vein Open - Assessment Assessment (Free Text/Narrative):: Patient awake in bed this AM. Pain well controlled. No complaints today. Hgb 14.6. UO 400 mL. VSS. - Plan Plan (Free Text/Narrative):: Continue pain management. Continue PT. Encourage PO fluid intake. UO is low-- nursing did report patient has not been voiding in the hat, proper UO was not measured. Discharge home this afternoon.
[2016-11-23] MEDS: Magnesium Hydroxide 400 MG/5 ML Susp 30 ML Cup PO SCH (08:28)
[2016-11-23] MEDS: oxyCODONE ER 20 MG TAB.ER PO SCH (08:29)
[2016-11-23] MEDS: Aspirin 325 MG Tab PO SCH (08:29)
[2016-11-23] MEDS: Multivitamins with Iron/Calcium/Folic Acid/Minerals Tab PO SCH (08:29)
[2016-11-23] MEDS: buPROPion 150 MG Tab.ER PO SCH (08:29)
[2016-11-23] MEDS: lamoTRIgine 100 MG Tab PO SCH (08:29)
[2016-11-23] MEDS: Celecoxib 100 MG Cap PO SCH (08:31)
[2016-11-23] MEDS: Fish Oil/Omega-3 Fatty Acids 1 Gm Cap PO SCH (08:31)
[2016-11-23] MEDS: Docusate Sodium 100 MG Cap PO SCH (08:31)
[2016-11-23 12:30] VITALS: BP 130/78
--- NOTE | 2016-11-24 08:39 | PCM.SN ---
- Free Text/Narrative Note: Discharge summary Dressing changed prior to discharge. See discharge plan for complete list of discharge medications and instructions. Dictation #: [id number]
--- NOTE | 2016-11-24 23:10 | DISCH ---
DATE OF DISCHARGE: 11/23/2016 PRIMARY CARE PHYSICIAN: Cruz Sharma M.D. ADMITTING DIAGNOSIS: Degenerative joint disease, right knee, tricompartmental. OTHER MEDICAL DIAGNOSES: None. DISCHARGE DIAGNOSIS: Status post right total knee arthroplasty. BRIEF HISTORY: Reginald is a 61-year-old male who has complaint of progressive right knee pain. He has previously undergone a left total knee arthroplasty and has done well. Due to his lack of response to conservative treatment, surgical intervention was recommended at that time. OPERATION: Right total knee arthroplasty. HOSPITAL COURSE: Pain was controlled with a combination of p.o. and IV pain medications. The patient was given 2 doses of Ancef postoperatively for 24 hours of antibiotic coverage. The patient was followed by Physical Therapy during his hospital stay. Upon discharge, the patient's vital signs were stable, and he was afebrile. Hemoglobin on the day of discharge is 14.6. Aspirin 325 mg was started on postop day #1 for DVT prophylaxis. Pain is currently controlled with oral pain medications only. He is tolerating oral intake and ambulating with wheeled walker. The patient feels comfortable with discharge home today. DISCHARGE MEDICATIONS: 1. Tylenol 500 mg. 2. Aspirin 325 mg. 3. Colace 100 mg. 4. Celebrex 200 mg. 5. Oxycodone 5 mg. 6. OxyContin 20 mg. DISCHARGE INSTRUCTIONS: 1. The patient will follow up in the clinic on December 01. This appointment is made for the patient. 2. He will attend outpatient physical therapy 2 to 3 times per week for 4 to 6 weeks. 3. Polar Care to the right knee. 4. MIKE hose to the right lower extremity, on in the morning and off in the evening. For complete medication reconciliation and discharge instructions, please refer to the patient's EHR. If the patient has questions or concerns prior to followup, he may call the clinic. EVA LAW /[id number]
== END 2016-11-23 15:55 | disposition home or self-care (01) | DRG 302 ==
LOC: MW.SDS 07:59 → EDSTATUS 09:45 → MW.MS 12:00
PROVIDERS: ADMIT Orthopaedic Surgery; ATTEND Orthopaedic Surgery
PROC: 0SRC0J9 Replacement of Right Knee Joint with Synthetic Substitute, Cemented, Open Approach (ICD-10-PCS; principal; 2016-11-21)
DX: M17.11 Unilateral primary osteoarthritis, right knee (principal); Z96.652 Presence of left artificial knee joint; F32.9 Major depressive disorder, single episode, unspecified; F41.9 Anxiety disorder, unspecified; Z79.899 Other long term (current) drug therapy
CPT/HCPCS: 01402; 36415; 73560-26-RT; 73560-RT; 85014; 85018; 86850; 86900; 86901; 88304; 88311; 97110-GP; 97116-GP; 97161-GP; A9270-GY; C1713; C1776; J0171; J0690; J0735; J1885; J2250; J2270; J2405; J2704; J2795; J3010; J7050; J7120

== ENCOUNTER 2018-07-09 10:33 | Day surgery (SDC) | payer BC ==
[~2018-07-09 10:33] MED LIST changes: -Acetaminophen 500 MG Tab PO SCH; -Famotidine 20 MG/2 ML SDV IVPUSH SCH; -Ketorolac 30 MG/ML SDV IVPUSH SCH; +Lactated Ringers 1,000 ML IV SCH; -Ropivacaine 49.25 ML, Ketorolac 30 MG, EPINEPHrine 0.5 MG, cloNIDine 80 MCG in Sodium C... INJECT ONE; -Scopolamine 1.5 MG Transdermal Patch TRDERM SCH; -ceFAZolin 2 GM in Premix Bag 1 BAG IV SCH; -oxyCODONE ER 20 MG TAB.ER PO SCH
--- NOTE | 2018-07-09 11:25 | PCM.PREANE ---
Preanesthetic Assessment - Anesthesia/Transfusion/Family Hx Anesthesia History: Prior Anesthesia Without Reaction Family History of Anesthesia Reaction: No Transfusion History: No Prior Transfusion(s) Intubation History: Unknown - Review of Systems General: No Symptoms Pulmonary: No Symptoms Cardiovascular: No Symptoms Gastrointestinal: No Symptoms, Other (10 year follow-up ) Neurological: No Symptoms Other: Reports: None - Physical Assessment NPO Status Date: 07/08/18 NPO Status Time: 11:59 O2 Sat by Pulse Oximetry: 94 Respiratory Rate: 16 Vital Signs: Last Vital Signs Temp 36.5 C 07/09/18 10:50 Pulse 78 07/09/18 10:50 Resp 16 07/09/18 10:50 BP 118/79 07/09/18 10:50 Pulse Ox 94 L 07/09/18 10:50 Height: 6 ft Weight: 120.202 kg ASA Class: 2 Mental Status: Alert & Oriented x3 Airway Class: Mallampati = 2 Dentition: Reports: Normal Dentition, [place](s) (x1 upper front and lower right ( gold) x1) Thyro-Mental Finger Breadths: 3 Mouth Opening Finger Breadths: 2 (small mouth) ROM/Head Extension: Full Lungs: Clear to Auscultation, Normal Respiratory Effort Cardiovascular: Regular Rate, Regular Rhythm - Allergies Allergies/Adverse Reactions: Allergies Allergy/AdvReac Type Severity Reaction Status Date / Time No Known Allergies Allergy Verified 07/04/18 10:48 - Blood Blood Available: No - Anesthesia Plan Pre-Op Medication Ordered: None - Acknowledgements Anesthesia Type Planned: MAC Pt an Appropriate Candidate for the Planned Anesthesia: Yes Alternatives and Risks of Anesthesia Discussed w Pt/Guardian: Yes Pt/Guardian Understands and Agrees with Anesthesia Plan: Yes PreAnesthesia Questionnaire HEENT History: Reports: Other (See Below) Other HEENT History: wears glasses Cardiovascular History: Reports: None Respiratory History: Reports: Other (See Below) (reactive airway disease (mild) - rare use of inhaler, some minor SOB (able to walk 2 miles)) Gastrointestinal History: Reports: None Genitourinary History: Reports: None Musculoskeletal History: Reports: Osteoarthritis (knees) Neurological History: Reports: None Psychiatric History: Reports: Anxiety, Depression Endocrine/Metabolic History: Reports: Obesity/BMI 30+ Hematologic History: Reports: None Immunologic History: Reports: None Oncologic (Cancer) History: Reports: None Dermatologic History: Reports: None - Past Surgical History Head Surgeries/Procedures: Reports: None HEENT Surgical History: Reports: None Cardiovascular Surgical History: Reports: None Respiratory Surgical History: Reports: None GI Surgical History: Reports: Colonoscopy (10 years ago- negative) Male Surgical History: Reports: None Endocrine Surgical History: Reports: None Neurological Surgical History: Reports: None Musculoskeletal Surgical History: Reports: Arthroscopic Knee, Carpal Tunnel, Knee Replacement Other Musculoskeletal Surgeries/Procedures:: hx mirella TKA Oncologic Surgical History: Reports: None Dermatological Surgical History: Reports: None - SUBSTANCE USE Smoking Status *Q: Never Smoker Recreational Drug Use History: No - HOME MEDS Home Medications: Home Meds Mometasone/Formoterol [Dulera 100-5 MCG] 1 - 2 puff INH BID PRN 02/24/16 [ History] Celecoxib [CeleBREX] 200 mg PO DAILY PRN 07/04/18 [History] - CURRENT (IN HOUSE) MEDS Current Meds: Current Medications Lactated Ringer's (Ringers, Lactated) 1,000 mls @ 125 mls/hr IV ASDIRECTED ON [facility] OF [facility] Last Admin: 07/09/18 10:55 Dose: 125 mls/hr
[2018-07-09] MEDS ORDERED: Propofol 200 MG/20 ML SDV ONE (12:01)
[2018-07-09] MEDS ORDERED: fentaNYL 100 MCG/2 ML SDV ONE (13:09)
[2018-07-09] MEDS ORDERED: Midazolam 1 MG/ML 2 ML SDV ONE (13:09)
--- NOTE | 2018-07-09 13:50 | PCM.OPNOTE ---
- General Post-Op/Procedure Note Date of Surgery/Procedure: 07/09/18 Operative Procedure(s): Colonoscopy Pre Op Diagnosis: Desire for colorectal cancer screening Post-Op Diagnosis: No evidence of neoplasia Anesthesia Technique: MAC (ASA II) Primary Surgeon: Markel Pan Condition: Good Free Text/Narrative:: DICTATION [id number] CPT CODE 14636
--- NOTE | 2018-07-09 13:58 | PCM.POSTAN ---
POST ANESTHESIA ASSESSMENT - MENTAL STATUS Mental Status: Alert - VITAL SIGNS Pulse Rate: 80 SaO2: 95 Resp Rate: 16 Blood Pressure: 112/76 - RESPIRATORY Respiratory Status: Respiratory Rate WNL - CARDIOVASCULAR CV Status: Pulse Rate WNL - GASTROINTESTINAL GI Status: No Symptoms - PAIN Pain Score: 0 - POST OP HYDRATION Hydration Status: Adequate & Stable (Doing well. No problems noted)
[2018-07-09] MEDS ORDERED: Lactated Ringers 1,000 ML IV SCH (14:00)
[2018-07-09 14:22] VITALS: BP 112/76
--- NOTE | 2018-07-09 14:23 | PCM48HPAN ---
Post Anesthesia Note - EVALUATION WITHIN 48HRS OF ANESTHETIC Vital Signs in Normal Range: Yes Patient Participated in Evaluation: Yes Respiratory Function Stable: Yes Airway Patent: Yes Cardiovascular Function Stable: Yes Hydration Status Stable: Yes Pain Control Satisfactory: Yes Nausea and Vomiting Control Satisfactory: Yes Mental Status Recovered: Yes Pulse Rate: 80 SaO2: 98 Resp Rate: 16 Blood Pressure: 112/76 - COMMENTS/OBSERVATIONS Free Text/Narrative:: Doing well, ready for discharge.
--- NOTE | 2018-07-09 16:30 | OR ---
SURGEON: Markel Pan M.D. DATE OF PROCEDURE: 07/09/2018 OPERATION PERFORMED: Colonoscopy. PRIMARY SURGEON: Markel Pan M.D. ANESTHESIA: MAC. ASA CLASSIFICATION: II. PREOPERATIVE DIAGNOSIS: Desire for colorectal cancer screening. POSTOPERATIVE DIAGNOSIS: No evidence of neoplasia. DESCRIPTION OF PROCEDURE: The patient was taken to the endoscopy room and positioned on the endoscopy table in the left lateral decubitus position. Time-out was called for appropriate identification of the patient and procedure. Monitored anesthesia care was provided. Colonoscope was inserted into the rectum and advanced with minimal difficulty to the cecum where the colonoscope was retroflexed to visualize the ascending colon from below. The colonoscope was then straightened and slowly withdrawn. Cecum, ascending colon, hepatic flexure, transverse colon, splenic flexure, descending colon, sigmoid colon, and rectum were very well visualized. There were no tumors, polyps, diverticula, or angiodysplastic changes. The colonoscope was withdrawn to the rectum and retroflexed to visualize the anal orifice from above. Again, no tumors or polyps were seen and there were no acute hemorrhoidal changes. The colonoscope was then straightened, the rectum aspirated, and the colonoscope removed. The patient tolerated the procedure well and was taken to recovery room in stable condition. CORDELL / ANI /[id number]
== END 2018-07-09 14:20 | disposition home or self-care (01) ==
LOC: MW.SDS 10:33
PROVIDERS: ATTEND Surgery
DX: Z12.11 Encounter for screening for malignant neoplasm of colon (principal); J45.909 Unspecified asthma, uncomplicated; F32.9 Major depressive disorder, single episode, unspecified; F39 Unspecified mood [affective] disorder; M17.12 Unilateral primary osteoarthritis, left knee
CPT/HCPCS: 45378; J2250; J2704; J3010; J7120; 00812